=== PATIENT | male | born 1955 | race Asian ===

== ENCOUNTER 2025-02-19 04:01 | Inpatient (IN) | payer MEDICARE, OTHER ==
[2025-02-19] VITALS (12 sets, daily range): BP systolic 89–151; BP diastolic 55–93; PULSE 52–121; RESP 19–41; TEMP 99.1–100.8; O2SAT 92–100
[~2025-02-19] VITALS: Ht 167.6 cm; Wt 38.7 kg
[~2025-02-19 04:01] MED LIST: ACET-784 PO; ASPI-1450 PO; BISA-151 PO; DONE-51 PO; MAGN-169 PO; MULT-1203 PO
[2025-02-19] MEDS ORDERED: 0.9% SODIUM CHLORIDE 10 ML SYRINGE IVP PRN (04:15)
[2025-02-19] MEDS: ALBUTEROL SULFATE 2.5 MG/0.5 ML NEB SOLUTION NEB ONE (04:17)
[2025-02-19] MEDS: IPRATROPIUM BROMIDE 0.5 MG/2.5 ML NEB SOLUTION NEB ONE (04:17)
[2025-02-19] MEDS: CefTRIAXone 1 GM/DEXTROSE 50 ML IV ONE (04:17)
[2025-02-19] MEDS: SODIUM CHLORIDE 0.9% 750 ML IV ONE (04:18)
[2025-02-19 04:19] LABS: PLATELET COUNT (AUTO) 312 K/uL (150-450); RED BLOOD CELL COUNT(AUTO) 4.21 MIL/uL (4.50-5.90); RED CELL DISTRIBUTION WIDTH 16.2 % (11.5-14.5); WHITE BLOOD COUNT (AUTO) 4.4 K/uL (4.5-11.0)
[2025-02-19 04:31] LABS: CALCIUM, TOTAL 9.1 mg/dL (8.8-10.5); CREATININE 1.97 mg/dL (0.60-1.30); GLOMERULAR FILTR. RATE CALC 34 mL/min (>60); GLUCOSE,RANDOM 168 mg/dL (70-110); UREA NITROGEN, BLOOD 72 mg/dL (7-18)
[2025-02-19 04:42] LABS: TROPONIN I-HIGH SENSITIVITY 32 ng/L (<76)
[2025-02-19 04:44] LABS: LACTIC ACID 5.1 mmol/L (0.4-2.0); SODIUM SERUM 165 mmol/L (136-145)
[2025-02-19] MEDS: RINGERS SOLUTION,LACTATED 750 ML IV ONE (05:07)
[2025-02-19] MEDS: ACETAMINOPHEN 500 MG/ISO-OSM 50 ML IV ONE (05:14)
[2025-02-19] MEDS ORDERED: ONDANSETRON HCL 4 MG/2 ML VIAL IVP PRN (05:30)
[2025-02-19] MEDS ORDERED: BISACODYL 10 MG RECTAL RECTAL SUPPOSITORY PR PRN (05:30)
[2025-02-19] MEDS: *CLINICAL-CEFEPIME DOSING CLINICAL ONE (06:11)
[2025-02-19] MEDS: DEXTROSE 5%-WATER 1,000 ML IV SCH (06:26)
[2025-02-19] MEDS: PHENYLEPHRINE 200 MG/D5%-WATER 250 ML IV PRN (07:58)
[2025-02-19] MEDS: HEPARIN SODIUM,PORCINE 5,000 UNITS/ML VIAL SQ SCH (08:59)
[2025-02-19] MEDS: CEFEPIME HCL 1 GM in DEXTROSE 5%-WATER 50 ML IV SCH (10:13)
[2025-02-19] MEDS ORDERED: SODIUM CHLORIDE 0.9% 250 ML IV ONE (10:16)
[2025-02-19] MEDS ORDERED: CEFEPIME HCL 0.5 GM in DEXTROSE 5%-WATER 50 ML IV SCH (12:00)
[2025-02-19 18:57] LABS: APPEARANCE,URINE HAZY (CLEAR); GLUCOSE, URINE (UA) NEGATIVE (NEGATIVE); LEUKOCYTE ESTERASE ,URINE LARGE (NEGATIVE); NITRATE,URINE NEGATIVE (NEGATIVE); OCCULT BLOOD,URINE LARGE (NEGATIVE); SPECIFIC GRAVITIY, URINE 1.024 (1.003-1.030)
[2025-02-19 19:19] LABS: SQUAMOUS EPITHELIAL CELL,UR Few /LPF (None Seen)
[2025-02-19] MEDS: CHLORHEXIDINE GLUCONATE 2% TOWELETTE [2'S/6'S] TP SCH (21:01)
[2025-02-20] VITALS (9 sets, daily range): BP systolic 108–121; BP diastolic 60–81; PULSE 52–75; RESP 16–31; TEMP 98.1–99.7; O2SAT 95–100
[2025-02-20 07:05] LABS: PLATELET COUNT (AUTO) 217 K/uL (150-450); RED BLOOD CELL COUNT(AUTO) 3.65 MIL/uL (4.50-5.90); RED CELL DISTRIBUTION WIDTH 16.3 % (11.5-14.5); WHITE BLOOD COUNT (AUTO) 12.3 K/uL (4.5-11.0)
[2025-02-20 07:09] LABS: CALCIUM, TOTAL 8.8 mg/dL (8.8-10.5); CREATININE 1.08 mg/dL (0.60-1.30); GLOMERULAR FILTR. RATE CALC > 60 mL/min (>60); GLUCOSE,RANDOM 157 mg/dL (70-110); SODIUM SERUM 158 mmol/L (136-145); UREA NITROGEN, BLOOD 52 mg/dL (7-18)
[2025-02-20 09:40] LABS: PATHOLOGY REVIEW, DIFF YES; RBC MORPHOLOGY COMMENT ABNORMAL RBC MORPH
[2025-02-20 09:49] LABS: BAND NEUTROPHILS % (MANUAL) 33 % (0-5); EOSINOPHILS % (MANUAL) 1 % (1-6); LYMPHOCYTES % (MANUAL) 13 % (22-44); METAMYELOCYTES % 11 % (0-0); MONOCYTES % (MANUAL) 2 % (2-9); MYELOCYTES % 1 % (0-0); NUCLEATED RED BLOOD CELLS 1.0 % (0.0-0.0); SEGMENTED NEUTROPHILS % 39 % (40-70)
[2025-02-20] MEDS: VANCOMYCIN 750 MG/WATER(PEG) 150 ML IV SCH (10:30)
[2025-02-20] MEDS: NOREPINEPHRINE 8 MG/0.9 % NACL 250 ML IV PRN (10:33)
[2025-02-20] MEDS: POTASSIUM CHL 10 MEQ/WATER 50 ML IV PRN (10:33)
[2025-02-20] MEDS: DEXTROSE 5%-0.45% SODIUM CHL 1,000 ML IV SCH (14:37)
[2025-02-20 17:48] LABS: CALCIUM, TOTAL 8.1 mg/dL (8.8-10.5); CREATININE 0.85 mg/dL (0.60-1.30); GLOMERULAR FILTR. RATE CALC > 60 mL/min (>60); GLUCOSE,RANDOM 159 mg/dL (70-110); SODIUM SERUM 153 mmol/L (136-145); UREA NITROGEN, BLOOD 39 mg/dL (7-18)
[2025-02-20 18:01] LABS: PHOSPHORUS 2.0 mg/dL (2.5-4.9)
[2025-02-20 20:56] LABS: CALCIUM, TOTAL 8.2 mg/dL (8.8-10.5); CREATININE 0.82 mg/dL (0.60-1.30); GLOMERULAR FILTR. RATE CALC > 60 mL/min (>60); GLUCOSE,RANDOM 165 mg/dL (70-110); SODIUM SERUM 152 mmol/L (136-145); UREA NITROGEN, BLOOD 36 mg/dL (7-18)
[2025-02-21] VITALS: BP 106/73; PULSE 64; PULSE 71; RESP 18; TEMP 98; O2SAT 98
[2025-02-21 04:00] VITALS: BP 116/78; PULSE 59; PULSE 64; RESP 18; TEMP 97.9; O2SAT 98
[2025-02-21 05:33] LABS: PLATELET COUNT (AUTO) 197 K/uL (150-450); RED BLOOD CELL COUNT(AUTO) 3.26 MIL/uL (4.50-5.90); RED CELL DISTRIBUTION WIDTH 16.6 % (11.5-14.5); WHITE BLOOD COUNT (AUTO) 10.1 K/uL (4.5-11.0)
[2025-02-21 05:36] LABS: BAND NEUTROPHILS % (MANUAL) 0 % (0-5)
[2025-02-21 05:48] LABS: CALCIUM, TOTAL 8.0 mg/dL (8.8-10.5); CREATININE 0.78 mg/dL (0.60-1.30); GLOMERULAR FILTR. RATE CALC > 60 mL/min (>60); GLUCOSE,RANDOM 171 mg/dL (70-110); SODIUM SERUM 150 mmol/L (136-145); UREA NITROGEN, BLOOD 32 mg/dL (7-18)
[2025-02-21 06:05] LABS: LYMPHOCYTES % (MANUAL) 9 % (22-44); MONOCYTES % (MANUAL) 3 % (2-9); SEGMENTED NEUTROPHILS % 88 % (40-70)
[2025-02-21 06:10] LABS: PHOSPHORUS 2.0 mg/dL (2.5-4.9)
[2025-02-21 08:00] VITALS: BP 124/73; PULSE 64; PULSE 66; RESP 18; TEMP 97.9; O2SAT 99
[2025-02-21 12:00] VITALS: BP 135/87; PULSE 63; PULSE 72; RESP 18; TEMP 98.3; O2SAT 91
[2025-02-21] MEDS: SODIUM PHOS,M-BASIC-D-BASIC 10 MEQ in DEXTROSE 5%-WATER 50 ML IV ONE (14:30)
[2025-02-21 16:00] VITALS: BP 117/88; PULSE 72; PULSE 74; RESP 18; TEMP 98.2; O2SAT 100
[2025-02-21 20:00] VITALS: BP 117/65; PULSE 76; PULSE 79; RESP 18; TEMP 98; O2SAT 99
[2025-02-21] MEDS ORDERED: SODIUM CHLORIDE 0.9% 250 ML IV ONE (22:44)
[2025-02-21] MEDS: CEFEPIME HCL 2 GM in DEXTROSE 5%-WATER 50 ML IV SCH (22:50)
[2025-02-21] MEDS: ETHYL ALCOHOL 62% ANTISEPTIC NASAL SANITIZER 0.6 ML AMPUL NASAL SCH (22:50)
[2025-02-22] VITALS: PULSE 77
[2025-02-22 04:00] VITALS: BP 125/74; PULSE 68; PULSE 78; RESP 18; TEMP 98; O2SAT 98
[2025-02-22] MEDS: NOREPINEPHRINE 8 MG/0.9 % NACL 250 ML IV PRN (04:12)
[2025-02-22 06:00] LABS: PHOSPHORUS 2.2 mg/dL (2.5-4.9)
[2025-02-22 06:07] LABS: CALCIUM, TOTAL 7.8 mg/dL (8.8-10.5); CREATININE 0.64 mg/dL (0.60-1.30); GLOMERULAR FILTR. RATE CALC > 60 mL/min (>60); GLUCOSE,RANDOM 157 mg/dL (70-110); SODIUM SERUM 148 mmol/L (136-145); UREA NITROGEN, BLOOD 16 mg/dL (7-18)
[2025-02-22 08:00] VITALS: BP 130/78; PULSE 59; RESP 21; TEMP 98.2; O2SAT 100
[2025-02-22 12:00] VITALS: BP 113/65; PULSE 51; RESP 23; TEMP 98.1; O2SAT 100
[2025-02-22] MEDS: VANCOMYCIN 500 MG/WATER(PEG) 100 ML IV ONE (12:34)
[2025-02-22 16:00] VITALS: BP 140/81; PULSE 52; PULSE 53; RESP 18; TEMP 98.3; O2SAT 100
[2025-02-22] MEDS: SODIUM,POTASSIUM PHOSPHATES POWDER PACKET PO ONE ×2 (16:21→23:14)
[2025-02-22 20:00] VITALS: BP 112/58; PULSE 64; RESP 15; TEMP 98.4; O2SAT 99
[2025-02-22] MEDS: VANCOMYCIN 500 MG/WATER(PEG) 100 ML IV SCH (20:25)
[2025-02-23] VITALS: BP 97/64; PULSE 57; RESP 26; TEMP 98.6; O2SAT 100
[2025-02-23] MEDS: ACETAMINOPHEN 325 MG TABLET PO PRN (02:37)
[2025-02-23 04:00] VITALS: BP 138/66; PULSE 52; RESP 22; TEMP 98.8; O2SAT 100
[2025-02-23 06:09] LABS: PLATELET COUNT (AUTO) 147 K/uL (150-450); RED BLOOD CELL COUNT(AUTO) 2.97 MIL/uL (4.50-5.90); RED CELL DISTRIBUTION WIDTH 14.7 % (11.5-14.5); WHITE BLOOD COUNT (AUTO) 4.0 K/uL (4.5-11.0)
[2025-02-23 06:19] LABS: PHOSPHORUS 3.6 mg/dL (2.5-4.9)
[2025-02-23 06:20] LABS: ASPARTATE AMINOTRANSFERASE 21 U/L (15-37); CALCIUM, TOTAL 7.6 mg/dL (8.8-10.5); CREATININE 0.60 mg/dL (0.60-1.30); GLOMERULAR FILTR. RATE CALC > 60 mL/min (>60); GLUCOSE,RANDOM 164 mg/dL (70-110); SODIUM SERUM 143 mmol/L (136-145); TOTAL PROTEIN, SERUM 5.7 g/dL (6.4-8.2); UREA NITROGEN, BLOOD 11 mg/dL (7-18)
[2025-02-23] MEDS: POTASSIUM CHLORIDE 20 MEQ ER TABLET PO PRN (06:34)
[2025-02-23 08:00] VITALS: BP 90/60; PULSE 52; PULSE 69; RESP 19; TEMP 98; O2SAT 100
[2025-02-23] MEDS: MULTIVITAMINS, THERAPEUTIC TABLET PO SCH (08:15)
[2025-02-23] MEDS ORDERED: POTASSIUM CHLORIDE 20 MEQ ER TABLET PO PRN (08:15)
[2025-02-23] MEDS ORDERED: POTASSIUM CHL 10 MEQ/WATER 50 ML IV PRN (08:15)
[2025-02-23] MEDS: THIAMINE 100 MG TABLET PO SCH (08:16)
[2025-02-23 12:00] VITALS: BP 117/63; PULSE 76; RESP 21; TEMP 98.1; O2SAT 100
[2025-02-23 16:00] VITALS: BP 111/49; PULSE 80; RESP 23; TEMP 98.4; O2SAT 98
[2025-02-23] MEDS ORDERED: SODIUM CHLORIDE 0.9% 250 ML IV ONE (18:48)
[2025-02-23 20:00] VITALS: BP 125/69; PULSE 78; RESP 25; TEMP 98.7; O2SAT 100
[2025-02-24] VITALS: BP 115/68; PULSE 78; RESP 20; TEMP 98.5; O2SAT 100
[2025-02-24 04:00] VITALS: BP 128/76; PULSE 78; RESP 17; TEMP 98.5; O2SAT 100
[2025-02-24 05:52] LABS: PLATELET COUNT (AUTO) 166 K/uL (150-450); RED BLOOD CELL COUNT(AUTO) 2.87 MIL/uL (4.50-5.90); RED CELL DISTRIBUTION WIDTH 14.9 % (11.5-14.5); WHITE BLOOD COUNT (AUTO) 3.5 K/uL (4.5-11.0)
[2025-02-24 06:01] LABS: CALCIUM, TOTAL 7.8 mg/dL (8.8-10.5); CREATININE 0.51 mg/dL (0.60-1.30); GLOMERULAR FILTR. RATE CALC > 60 mL/min (>60); GLUCOSE,RANDOM 123 mg/dL (70-110); SODIUM SERUM 140 mmol/L (136-145); UREA NITROGEN, BLOOD 8 mg/dL (7-18)
[2025-02-24 06:06] LABS: PHOSPHORUS 3.1 mg/dL (2.5-4.9)
[2025-02-24 08:00] VITALS: BP 128/70; PULSE 88; RESP 25; TEMP 98.2; O2SAT 100
[2025-02-24 12:00] VITALS: BP 107/63; PULSE 109; RESP 22; TEMP 98.2; O2SAT 100
[2025-02-24 16:00] VITALS: BP 125/68; PULSE 93; RESP 26; TEMP 98.2; O2SAT 100
[2025-02-24 20:00] VITALS: BP 127/65; PULSE 87; RESP 24; TEMP 98; O2SAT 100
[2025-02-25] VITALS: BP 109/56; PULSE 80; RESP 25; TEMP 98.4; O2SAT 100
[2025-02-25 04:00] VITALS: BP 118/71; PULSE 74; RESP 18; TEMP 98.6; O2SAT 100
[2025-02-25 06:11] LABS: PLATELET COUNT (AUTO) 192 K/uL (150-450); RED BLOOD CELL COUNT(AUTO) 3.29 MIL/uL (4.50-5.90); RED CELL DISTRIBUTION WIDTH 15.1 % (11.5-14.5); WHITE BLOOD COUNT (AUTO) 4.4 K/uL (4.5-11.0)
[2025-02-25 06:45] LABS: CALCIUM, TOTAL 8.1 mg/dL (8.8-10.5); CREATININE 0.57 mg/dL (0.60-1.30); GLOMERULAR FILTR. RATE CALC > 60 mL/min (>60); GLUCOSE,RANDOM 127 mg/dL (70-110); SODIUM SERUM 139 mmol/L (136-145); UREA NITROGEN, BLOOD 9 mg/dL (7-18)
[2025-02-25 06:49] LABS: PHOSPHORUS 3.1 mg/dL (2.5-4.9)
[2025-02-25 08:00] VITALS: BP 102/56; PULSE 57; PULSE 80; RESP 17; TEMP 99.1; O2SAT 99
[2025-02-25 12:00] VITALS: BP 141/51; PULSE 61; PULSE 89; RESP 19; TEMP 98.7; O2SAT 98
[2025-02-25] MEDS ORDERED: SODIUM TETRADECYL SULFATE 3% 60 MG/2 ML VIAL IVP ONE (15:01)
[2025-02-25] MEDS ORDERED: EPINEPHrine 1:10,000 [1 MG/10 ML] SYRINGE ONE (15:01)
[2025-02-25] MEDS ORDERED: FLUMAZENIL 0.1 MG/ML 5 ML VIAL IVP ONE (15:01)
[2025-02-25] MEDS ORDERED: NALOXONE HCL 0.4 MG/ML VIAL ONE (15:01)
[2025-02-25] MEDS ORDERED: ATROPINE SULFATE 0.1 MG/ML 10 ML SYRINGE IVP ONE (15:01)
[2025-02-25] MEDS ORDERED: SODIUM CHLORIDE 0.9% 1,000 ML ONE (15:18)
[2025-02-25 16:00] VITALS: BP 116/59; PULSE 78; RESP 20; TEMP 98.8; O2SAT 99
[2025-02-25] MEDS ORDERED: SODIUM CHLORIDE 0.9% 250 ML IV ONE (19:38)
[2025-02-25 20:00] VITALS: BP 108/61; PULSE 59; RESP 18; TEMP 98; O2SAT 100
[2025-02-26] VITALS (7 sets, daily range): BP systolic 106–141; BP diastolic 55–78; PULSE 67–94; RESP 15–20; TEMP 98–99.6; O2SAT 96–100
[2025-02-26 06:39] LABS: PLATELET COUNT (AUTO) 225 K/uL (150-450); RED BLOOD CELL COUNT(AUTO) 3.14 MIL/uL (4.50-5.90); RED CELL DISTRIBUTION WIDTH 15.4 % (11.5-14.5); WHITE BLOOD COUNT (AUTO) 3.5 K/uL (4.5-11.0)
[2025-02-26 06:50] LABS: CALCIUM, TOTAL 7.5 mg/dL (8.8-10.5); CREATININE 0.49 mg/dL (0.60-1.30); GLOMERULAR FILTR. RATE CALC > 60 mL/min (>60); GLUCOSE,RANDOM 151 mg/dL (70-110); SODIUM SERUM 139 mmol/L (136-145); UREA NITROGEN, BLOOD 8 mg/dL (7-18)
[2025-02-26] MEDS: HYDROGEN PEROXIDE 3% 473 ML SOLUTION TP SCH (09:29)
[2025-02-26] MEDS: POVIDONE-IODINE 10% 120 ML SOLUTION TP SCH (09:29)
[2025-02-27] VITALS: BP 139/91; PULSE 85; RESP 20; TEMP 98.2; O2SAT 98
[2025-02-27 04:00] VITALS: BP 143/90; PULSE 69; RESP 16; TEMP 98; O2SAT 99
[2025-02-27 05:38] LABS: PLATELET COUNT (AUTO) 250 K/uL (150-450); RED BLOOD CELL COUNT(AUTO) 2.82 MIL/uL (4.50-5.90); RED CELL DISTRIBUTION WIDTH 15.7 % (11.5-14.5); WHITE BLOOD COUNT (AUTO) 4.4 K/uL (4.5-11.0)
[2025-02-27 05:50] LABS: CALCIUM, TOTAL 7.8 mg/dL (8.8-10.5); CREATININE 0.55 mg/dL (0.60-1.30); GLOMERULAR FILTR. RATE CALC > 60 mL/min (>60); GLUCOSE,RANDOM 153 mg/dL (70-110); SODIUM SERUM 138 mmol/L (136-145); UREA NITROGEN, BLOOD 9 mg/dL (7-18)
[2025-02-27 08:00] VITALS: BP 122/83; PULSE 81; RESP 22; TEMP 98.9; O2SAT 100
[2025-02-27] MEDS ORDERED: LIDOCAINE/PF 2% 5 ML SYRINGE IVP ONE ×2 (11:35)
[2025-02-27] MEDS ORDERED: PROPOFOL 1% 20 ML VIAL IVP ONE ×2 (11:35)
[2025-02-27] MEDS ORDERED: 0.9% SODIUM CHLORIDE 10 ML VIAL IV ONE ×2 (11:35)
== END 2025-02-27 11:36 | DRG 871 ==
LOC: EMS 04:02 → EDH 05:28 → ICU 09:49
PROVIDERS: ADMIT Internal Medicine; ATTEND Internal Medicine
PROC: 5A09357 Assistance with Respiratory Ventilation, Less than 24 Consecutive Hours, Continuous Positive Airway Pressure (ICD-10-PCS; 2025-02-19)
PROC: 5A09357 Assistance with Respiratory Ventilation, Less than 24 Consecutive Hours, Continuous Positive Airway Pressure (ICD-10-PCS; 2025-02-20)
PROC: 05HB33Z Insertion of Infusion Device into Right Basilic Vein, Percutaneous Approach (ICD-10-PCS; 2025-02-23)
PROC: B54MZZA Ultrasonography of Right Upper Extremity Veins, Guidance (ICD-10-PCS; 2025-02-23)
PROC: 05HD33Z Insertion of Infusion Device into Right Cephalic Vein, Percutaneous Approach (ICD-10-PCS; 2025-02-23)
PROC: B54MZZA Ultrasonography of Right Upper Extremity Veins, Guidance (ICD-10-PCS; 2025-02-23)
PROC: 0DH63UZ Insertion of Feeding Device into Stomach, Percutaneous Approach (ICD-10-PCS; principal; 2025-02-25 15:35)
DX: A41.9 Sepsis, unspecified organism (principal); E43 Unspecified severe protein-calorie malnutrition; G92.8 Other toxic encephalopathy; J96.01 Acute respiratory failure with hypoxia; J18.9 Pneumonia, unspecified organism; E87.0 Hyperosmolality and hypernatremia; N17.9 Acute kidney failure, unspecified; N39.0 Urinary tract infection, site not specified; R64 Cachexia; Z68.1 Body mass index [BMI] 19.9 or less, adult; R65.20 Severe sepsis without septic shock; F01.50 Vascular dementia, unspecified severity, without behavioral disturbance, psychotic disturbance, mood disturbance, and anxiety; R62.7 Adult failure to thrive; Z66 Do not resuscitate; D64.9 Anemia, unspecified; E87.6 Hypokalemia; E83.39 Other disorders of phosphorus metabolism; Y95 Nosocomial condition; Z86.73 Personal history of transient ischemic attack (TIA), and cerebral infarction without residual deficits; Z79.82 Long term (current) use of aspirin; Z79.899 Other long term (current) drug therapy
CPT/HCPCS: 36245; 36569; 71045; 76770; 76937; 80048; 80053; 80202; 81001; 82040; 83605; 83735; 83880; 84100; 84132; 84145; 84295; 84484; 85025; 85610; 87040; 87081; 87086; 92526; 92610; 93005; 94640; 94660; 94760; 96365; 99291; J0131; J0169; J0461; J0690; J0692; J0696; J1200; J1644; J2312; J2370; J2704; J3480; J3490; J7030; J7050; J7060; J7120; 36415-L1; 36415-TC; J7613; X7700